=== PATIENT | male | born 1980 | race Caucasian/White ===

== ENCOUNTER → 2017-10-13 | Outpatient (CLI) | payer OTHER ==
[~2017-10-13] MED LIST: NONE PER PT
== END | disposition home or self-care (01) ==
LOC: PETCFH 12:03
PROVIDERS: ATTEND Internal Medicine Gastroenterology
DX: K21.9 Gastro-esophageal reflux disease without esophagitis (principal); R10.12 Left upper quadrant pain; R10.812 Left upper quadrant abdominal tenderness; R11.0 Nausea
CPT/HCPCS: 78227; A9537